=== PATIENT | female | born 2000 | race Two or more races ===

== ENCOUNTER 2021-11-20 20:18 | Emergency (ER) | payer SELFPAY ==
[~2021-11-20] VITALS: Ht 165.1 cm; Wt 86.2 kg
[2021-11-20 20:21] VITALS: BP 128/81
== END 2021-11-20 22:02 | disposition left against medical advice (07) ==
LOC: ER 20:20
DX: R53.1 Weakness (principal); Z53.21 Procedure and treatment not carried out due to patient leaving prior to being seen by health care provider